=== PATIENT | male | born 1960 | race Caucasian/White ===

== ENCOUNTER 2017-05-29 12:36 | Inpatient (IN) | payer OTHER ==
--- NOTE | 2017-05-29 13:08 | CPEKG ---
Heart Rate: 94 RR Interval: 638 P-R Interval: 152 QRSD Interval: 92 QT Interval: 368 QTC Interval: 461 P [place]: 52 QRS [place]: 66 T Wave [place]: 1 EKG Severity - NORMAL ECG - EKG Impression: SINUS RHYTHM Electronically Signed By: Diane Sampson 29-May-2017 20:47:02
--- NOTE | 2017-05-29 13:23 | EDPHY ---
H & P Time Seen by Provider: 05/29/17 13:11 HPI/ROS: CHIEF COMPLAINT: Abdominal pain HISTORY OF PRESENT ILLNESS: This patient is a 56 year old male complaining of abdominal pain onset yesterday afternoon. He has had intermittent epigastric pains over the last few months. These pains occur often after eating, but he has not noted a correlation with any particular kind of foods. He has not followed up with his primary care provider regarding these symptoms. Yesterday, he had an episode lasting about one hour with pain at about 5/10 severity. His pain is localized to his epigastric area and radiates to his back. It does not radiate to his groin area. Today, had an upset stomach feeling upon waking around 8am and went to work out as usual, but his pain increased and he was unable to exercise. He returned home, and his pain increased to 9/10 severity and he developed nausea. This severe pain lasted around 30 minutes, at which point he vomited and felt his pain was relieved. He has had kidney stones in the past, but does not feel his current symptoms are similar. He has history of CABG, but this does not feel like his prior heart symptoms. No history of abdominal surgery. No fever, chest pain, shortness of breath, or other associated symptoms. REVIEW OF SYSTEMS: A 10 point review of systems was performed and is negative with the exception of the elements mentioned in the history of present illness. Past Medical/Surgical History: Triple bypass 12/2015, 5 stents, Hyperlipidemia, Knee surgery Social History: Nonsmoker. Alcohol use in moderation. Lives in [place]. Smoking Status: Former smoker Physical Exam: General Appearance: Alert, no distress Eyes: Pupils equal and round, no conjunctival pallor or injection ENT, Mouth: Mucous membranes moist Neck: Normal inspection Respiratory: Lungs are clear to auscultation Cardiovascular: Regular rate and rhythm Gastrointestinal: Midepigastric and right upper quadrant tenderness. Abdomen is soft. Neurological: A&O, nonfocal, normal gait Skin: Warm and dry, no rash Extremities: Nontender, no pedal edema Psychiatric: Mood and affect normal Constitutional: Initial Vital Signs Temperature (C) 36.5 C 05/29/17 12:52 Heart Rate 93 05/29/17 12:52 Respiratory Rate 16 05/29/17 12:52 Blood Pressure 128/97 H 05/29/17 12:52 O2 Sat (%) 94 05/29/17 12:52 O2 Delivery Mode Room Air Allergies/Adverse Reactions: codeine Allergy (Verified 05/29/17 12:50) Home Medications: Medication Instructions Recorded Ascorbic Acid [Vitamin C 500 mg 500 mg PO DAILY@1200 09/21/13 (*)] Multivitamins [Multivitamin (*)] 1 each PO DAILY@1200 09/21/13 Rosuvastatin Calcium [Crestor] 10 mg PO DAILY@1300 09/21/13 Herbals/Supplements -Info Only 1 ea PO DAILY 12/20/15 Zolpidem Tartrate [Ambien 10 mg] 10 mg PO HS PRN 12/30/15 Aspirin EC [Aspirin EC 81 mg (*)] 81 mg PO DAILY 05/29/17 [place]-3 Fatty Acids [Fish Oil 1000 1,000 mg PO DAILY 05/29/17 mg (*)] Ramipril [Altace 5mg (*)] 5 mg PO DAILY 05/29/17 Medical Decision Making - Diagnostics Imaging Results: Abdomen Ultrasound 05/29/17 13:26 Impression: 1. Cholelithiasis with multiple shadowing gallstones and gallbladder wall thickening suggesting cholecystitis. 2. No biliary ductal dilation or pericholecystic fluid. 3. Hepatomegaly and hepatic steatosis. Findings discussed with Emergency Department physician, Diane Sampson, at 1442 hours 05/29/2017. Final report concurs with initial preliminary interpretation. Imaging: Discussed imaging studies w/ order caller Radiologist ED Course/Re-evaluation: 56 year old male presents with epigastric and right upper quadrant abdominal pain worsening since yesterday. Plan for labs including CBC, BMP, liver, lipase. Plan for abdominal US. 14:[address] Gonzalez, radiologist. US shows cholecystitis. [place]ase [place] [id number]. 14:[address] Roth, general surgeon. He will consult. 14:58 Patient feels his pain is escalating. Plan to administer 1mg IV Dilaudid, 1g IV ertapenem, 4mg IV Zofran for symptom relief. 15:[address] Mendoza, audio visual coordinator. He will consult. 15:06 Spoke with hospitalist service. Dr. Bahena accepts admission. Differential Diagnosis: includes though not limited to appendicitis, choledocolithiasis, cholangitis, PUD, acute hepatitis - Data Points Laboratory Results: Laboratory Results 05/29/17 13:10 05/29/17 13:10 Medications Given: Ascorbic Acid (Vitamin C) 500 mg PO DAILY@1200 [facility] Stop: 11/26/17 11:59 Last Admin: 05/31/17 13:37 Dose: Not Given Aspirin Buffered (Aspirin Ec) 81 mg PO DAILY [facility] Stop: 11/26/17 08:59 Last Admin: 05/31/17 09:10 Dose: Not Given Hydromorphone HCl (Dilaudid) 0.4 - 1 mg IVP Q2HRS PRN PRN Reason: Pain, Severe Unable to Take PO Stop: 06/09/17 15:01 Last Admin: 05/31/17 16:48 Dose: 1 mg Ertapenem 1 gm/ Sodium (Chloride) 100 mls @ 200 mls/hr IV DAILY MALAIKA PRN Reason: Protocol Stop: 06/29/17 08:59 Last Admin: 05/31/17 09:08 Dose: 100 mls Sodium Chloride (Ns) 1,000 mls @ 125 mls/hr IV CONT [facility] Stop: 11/25/17 15:14 Last Admin: 05/31/17 10:16 Dose: 1,000 mls Multivitamins (Tab-A-Norma) 1 each PO DAILY@1200 [facility] Stop: 11/26/17 11:59 Last Admin: 05/31/17 13:37 Dose: Not Given Izqgm-2-Eckk Ethyl Esters (Fish Oil) 1,000 mg PO DAILY [facility] Stop: 11/26/17 08:59 Last Admin: 05/31/17 09:15 Dose: Not Given Ondansetron HCl (Zofran) 4 mg IVP Q4HRS PRN PRN Reason: Nausea/Vomiting, Can't Take PO Stop: 11/25/17 15:10 Last Admin: 05/30/17 22:31 Dose: 4 mg Ramipril (Altace) 5 mg PO DAILY [facility] Stop: 11/26/17 08:59 Last Admin: 05/31/17 09:15 Dose: 5 mg Zolpidem Tartrate (Ambien) 10 mg PO HS PRN PRN Reason: Sleep/Insomnia Stop: 11/25/17 18:11 Last Admin: 05/30/17 22:32 Dose: 10 mg Discontinued Medications Enoxaparin Sodium (Lovenox) 40 mg SC DAILY [facility] Stop: 11/26/17 08:59 Last Admin: 05/31/17 09:10 Dose: Not Given Hydromorphone HCl (Dilaudid) 1 mg IVP Q2HRS PRN PRN Reason: Pain, Severe Unable to Take PO Stop: 05/29/17 18:01 Last Admin: 05/29/17 14:58 Dose: 1 mg Hydromorphone HCl (Dilaudid) 0.4 mg IVP Q2HRS PRN PRN Reason: Pain, Severe Unable to Take PO Stop: 06/08/17 18:36 Last Admin: 05/29/17 18:45 Dose: 0.4 mg Ertapenem 1 gm/ Sodium (Chloride) 100 mls @ 200 mls/hr IV EDNOW ONE PRN Reason: Protocol Stop: 05/29/17 15:24 Last Admin: 05/29/17 15:47 Dose: 100 mls Morphine Sulfate (Morphine) 2 - 4 mg IVP Q4HRS PRN PRN Reason: Pain, Severe Unable to Take PO Stop: 06/08/17 20:20 Last Admin: 05/30/17 11:16 Dose: 2 mg Ondansetron HCl (Zofran) 4 mg IVP EDNOW ONE Stop: 05/29/17 14:53 Last Admin: 05/29/17 14:57 Dose: 4 mg Departure - Departure [facility] Clinical Impression: Acute gallstone pancreatitis Condition: Fair Report Scribed for: Diane Sampson Report Scribed by: Agustina Fregsoo Date of Report: 05/29/17 Time of Report: 13:24 Physician Review and Approval Statement: 05/29/17 13:24 Portions of this note were transcribed by a nurses medical assistants phlebotomists. I personally performed a history, physical exam, medical decision making, and confirmed accuracy of information the transcribed note.
[2017-05-29 13:29] LABS: % IMMATURE GRANULYOCYTES 0.4 % (0.0-1.1); ABSOLUTE IMMATURE GRANULOCYTES 0.07 10^3/uL (0.00-0.10); ADD DIFF? NO; ADD MORPH? NO; ADD SCAN? NO; ATYPICAL LYMPHOCYTE FLAG 0 (0-99); FRAGMENT RBC FLAG 0 (0-99); HEMATOCRIT 49.9 % (40.0-51.0); HEMOGLOBIN 17.4 g/dL (13.7-17.5); LEFT SHIFT FLG 0 (0-99); LIPEMIA HEMOLYSIS FLAG 90 (0-99); MEAN CELL HEMOGLOBIN 31.1 pg (27.9-34.1); MEAN CELL HEMOGLOBIN CONCENTR. 34.9 g/dL (32.4-36.7); MEAN CELL VOLUME 89.3 fL (81.5-99.8); MEAN PLATELET VOLUME 10.5 fL (8.7-11.7); PLATELET CLUMPS FLAG 0 (0-99); PLATELET COUNT 210 10^3/uL (150-400); RED BLOOD CELL COUNT 5.59 10^6/uL (4.40-6.38); RED CELL DISTRIBUTION WIDTH 12.3 % (11.5-15.2)
[2017-05-29 13:34] LABS: ALANINE AMINOTRANSFERASE 104 IU/L (21-72); ALKALINE PHOSPHATASE 77 IU/L (38-126); ANION GAP 16 mEq/L (8-16); ASPARTATE AMINOTRANSFERASE 171 IU/L (17-59); BILIRUBIN,TOTAL 4.5 mg/dL (0.1-1.4); BILIRUBIN-CONJUGATED 2.3 mg/dL (0.0-0.5); BILIRUBIN-UNCONJUGATED 2.2 mg/dL (0.0-1.1); CALCIUM 10.7 mg/dL (8.5-10.4); CARBON DIOXIDE 23 mEq/l (22-31); CHLORIDE 102 mEq/L (97-110); GLOMERULAR FILTRATION RATE > 60; GLUCOSE 117 mg/dL (70-100); POTASSIUM 3.9 mEq/L (3.5-5.2); SODIUM 141 mEq/L (134-144)
[2017-05-29] MEDS ORDERED: ONDANSETRON 4 MG/2 ML VIAL IVP ONE (14:52)
[2017-05-29] MEDS ORDERED: HYDROmorphONE/DILAUDID 1 MG/ML SYR IVP PRN ×2 (14:52→18:37)
[2017-05-29] MEDS ORDERED: ERTAPENEM 1 GM in NS 100 ML IV ONE (14:55)
[2017-05-29] MEDS ORDERED: ONDANSETRON DISINTEGRATING 4 MG TAB PO PRN (15:11)
[2017-05-29] MEDS ORDERED: ACETAMINOPHEN 325 MG TAB PO PRN (15:11)
[2017-05-29] MEDS: NS 1,000 ML IV SCH (16:29)
[2017-05-29] MEDS ORDERED: NON-FORMULARY NEW DRUG (Zolpidem Tartrate [Ambien 10 Mg] 10 MG) PO PRN (17:54)
--- NOTE | 2017-05-29 18:00 | PDGENHP ---
History and Physical - Chief Complaint Abdominal pain - History of Present Illness 56-year-old male presents to the emergency department today with a 3 to four- day history of worsening epigastric pain. Patient states that he has had intermittent epigastric pain for the past few months but has not sought treatment. He states that the pain has gotten worse over the last few days to the point where it was excruciating which brought him to present to the emergency department today. He is unclear what makes the pain worse, does state that he used usually worse with eating and that he has thought this is biliary in nature given the fact that he has had family members have cholecystectomies in the past but has not sought treatment. He describes his pain is epigastric, sharp, 8/10 at worse intensity, with radiation to the back and right upper quadrant. It is better with not eating and IV narcotics. He denies having any nausea vomiting fever or chills in his main complaint is the pain. History Information - Allergies/Home Medication List Allergies/Adverse Reactions: codeine Allergy (Verified 05/29/17 12:50) Home Medications: Ascorbic Acid [Vitamin C 500 mg (*)] 500 mg PO DAILY@1200 09/21/13 [Last Taken 05/29/17] Multivitamins [Multivitamin (*)] 1 each PO DAILY@1200 09/21/13 [Last Taken 05/29] Rosuvastatin Calcium [Crestor] 10 mg PO DAILY@1300 09/21/13 [Last Taken 05/29/17 ] Herbals/Supplements -Info Only 1 ea PO DAILY 12/20/15 [Last Taken 12/16/15] Zolpidem Tartrate [Ambien 10 mg] 10 mg PO HS PRN 12/30/15 [Last Taken 05/29/17] Aspirin EC [Aspirin EC 81 mg (*)] 81 mg PO DAILY 05/29/17 [Last Taken 05/29/17] [place]-3 Fatty Acids [Fish Oil 1000 mg (*)] 1,000 mg PO DAILY 05/29/17 [Last Taken 05/29/17] Ramipril [Altace 5mg (*)] 5 mg PO DAILY 05/29/17 [Last Taken 05/29/17] I have personally reviewed and updated: family history, medical history, social history, surgical history - Past Medical History coronary artery disease - Surgical History Additional surgical history: Two vessel CABG, no abdominal surgeries - Social History Smoking Status: Former smoker Alcohol Use: Occasionally Drug Use: None Review of Systems ROS: 10pt was reviewed & negative except for what was stated in HPI & below Physical Exam Temp Pulse Resp BP Pulse Ox 36.6 C 83 16 151/87 H 97 05/29/17 16:24 05/29/17 16:24 05/29/17 16:24 05/29/17 16:24 05/29/17 16:24 O2 (L/minute) 2 Constitutional: no apparent distress, appears nourished, not in pain Eyes: PERRL, anicteric sclera, EOMI, No icteric sclera Ears, Nose, Mouth, Throat: moist mucous membranes, hearing normal, ears appear normal, no oral mucosal ulcers Cardiovascular: regular rate and rhythym, no murmur, rub, or gallop, No edema Respiratory: no respiratory distress, no rales or rhonchi, clear to auscultation Gastrointestinal: other (Soft, nondistended, tender to palpation in the epigastrium without rebound tenderness or guarding) Skin: warm, normal color, no rashes or abrasions, no fluctuance, no induration, No mottled Musculoskeletal: full muscle strength, no muscle tenderness, normal joint ROM, no joint effusions Neurologic: AAOx3, sensation intact bilaterally Psychiatric: interacting appropriately, not anxious, not encephalopathic, thought process linear Lymph, Heme, Immunologic: no cervical LAD, no supraclavicular LAD Lab Data & Imaging Review 05/29/17 13:10 05/29/17 13:10 WBC 16.12 10^3/uL (3.80-9.50) H 05/29/17 13:10 RBC 5.59 10^6/uL (4.40-6.38) 05/29/17 13:10 Hgb 17.4 g/dL (13.7-17.5) 05/29/17 13:10 Hct 49.9 % (40.0-51.0) 05/29/17 13:10 MCV 89.3 fL (81.5-99.8) 05/29/17 13:10 MCH 31.1 pg (27.9-34.1) 05/29/17 13:10 MCHC 34.9 g/dL (32.4-36.7) 05/29/17 13:10 RDW 12.3 % (11.5-15.2) 05/29/17 13:10 Plt Count 210 10^3/uL (150-400) 05/29/17 13:10 MPV 10.5 fL (8.7-11.7) 05/29/17 13:10 Neut % (Auto) 89.2 % (39.3-74.2) H 05/29/17 13:10 Lymph % (Auto) 5.3 % (15.0-45.0) L 05/29/17 13:10 [place] % (Auto) 4.8 % (4.5-13.0) 05/29/17 13:10 Eos % (Auto) 0.1 % (0.6-7.6) L 05/29/17 13:10 Baso % (Auto) 0.2 % (0.3-1.7) L 05/29/17 13:10 Nucleat RBC Rel Count 0.0 % (0.0-0.2) 05/29/17 13:10 Absolute Neuts (auto) 14.37 10^3/uL (1.70-6.50) H 05/29/17 13:10 Absolute Lymphs (auto) 0.86 10^3/uL (1.00-3.00) L 05/29/17 13:10 Absolute Monos (auto) 0.77 10^3/uL (0.30-0.80) 05/29/17 13:10 Absolute Eos (auto) 0.01 10^3/uL (0.03-0.40) L 05/29/17 13:10 Absolute Basos (auto) 0.04 10^3/uL (0.02-0.10) 05/29/17 13:10 Absolute Nucleated RBC 0.00 10^3/uL (0-0.01) 05/29/17 13:10 Immature Gran % 0.4 % (0.0-1.1) 05/29/17 13:10 Immature Gran # 0.07 10^3/uL (0.00-0.10) 05/29/17 13:10 Sodium 141 mEq/L (134-144) 05/29/17 13:10 Potassium 3.9 mEq/L (3.5-5.2) 05/29/17 13:10 Chloride 102 mEq/L (97-110) 05/29/17 13:10 Carbon Dioxide 23 mEq/l (22-31) 05/29/17 13:10 Anion Gap 16 mEq/L (8-16) 05/29/17 13:10 BUN 17 mg/dL (7-23) 05/29/17 13:10 Creatinine 1.0 mg/dL (0.7-1.3) 05/29/17 13:10 Estimated GFR > 60 05/29/17 13:10 Glucose 117 mg/dL (70-100) H 05/29/17 13:10 Calcium 10.7 mg/dL (8.5-10.4) H 05/29/17 13:10 Phosphorus 3.1 mg/dL (2.5-4.5) 05/29/17 13:10 Total Bilirubin 4.5 mg/dL (0.1-1.4) H 05/29/17 13:10 Conjugated Bilirubin 2.3 mg/dL (0.0-0.5) H 05/29/17 13:10 Unconjugated Bilirubin 2.2 mg/dL (0.0-1.1) H 05/29/17 13:10 AST 171 IU/L (17-59) H 05/29/17 13:10 ALT 104 IU/L (21-72) H 05/29/17 13:10 Alkaline Phosphatase 77 IU/L (38-126) 05/29/17 13:10 Total Protein 8.0 g/dL (6.3-8.2) 05/29/17 13:10 Albumin 5.0 g/dL (3.5-5.0) 05/29/17 13:10 Lipase > 42348 IU/L (23-300) H 05/29/17 13:10 Visualized and Interpreted imaging results: Yes Interpretation: Ultrasound shows gallbladder wall thickening, cholelithiasis, normal duct architecture Assessment & Plan Assessment: Acute gallstone pancreatitis (Acute) Plan: 56-year-old male with acute gallstone pancreatitis, likely cholecystitis. I told the patient that with his lipase of greater than 20,000 which is are labs upper limit of measurements he has a fairly robust pancreatitis. In addition, his bilirubin is also for and I have high suspicion that he likely has choledocholithiasis although this is not apparent on his ultrasound. I told him that he needs to have this likely choledocholithiasis and pancreatitis addressed initially and that he will require cholecystectomy this admission. Agree with IV hydration, antibiotics and GI consultation for likely ERCP for stone clearance. Will follow up with cholecystectomy once pancreatitis resolves , hopefully within the next 24-48 hours. Discussed the patient's surgery with him including the risks benefits and alternatives and he wishes to proceed when appropriate
--- NOTE | 2017-05-29 18:29 | GHP ---
[f rep st] HISTORY AND PHYSICAL DATE OF ADMISSION: 05/29/2017 CHIEF COMPLAINT: Abdominal pain. HISTORY OF PRESENT ILLNESS: This is a 56-year-old male with a history of coronary artery disease st atus post bypass in December of 2015 who presents with sudden onset of epigastric pain the morning of p resentation. Patient reports being in his normal state of health the day previously with normal ora l intake and fluid intake. No abdominal discomfort, nausea, vomiting, or changes in his bowel habit s. Patient had a normal stool the evening prior to presentation. When he woke in the morning he dang d an upset stomach feeling with pain in his epigastric area. Thought it was simply some acid reflux or dyspepsia. Took a couple [id number] medications and went to the gym in hopes that it woul d resolve. Pain progressed to the point that he vomited and became diaphoretic therefore called for emergency assistance to have someone bring him to the emergency room. In the ED pain persists at a 10/10 radiating to his back from his epigastrium, additionally having some pain in the right upper quadrant. Patient reports several episodes similar to this in the past, in the past year, none as s evere as this leading to nausea and vomiting. Typically spontaneously resolving on their own. Sofya ent denies any subjective fevers or chills. Denies any chest pain. Denies shortness of breath. De nies palpitations, lightheadedness, vision changes. Denies any stools today. Denies dysuria, hemat uria, lower extremity edema. Denies any recent rashes or new medications. PAST MEDICAL HISTORY: 1. Coronary artery disease status post CABG in 2016. 2. Hypertension. 3. Hyperlipidemia. SOCIAL HISTORY: The patient does not smoke. Drinks alcohol occasionally. Denies illicit drugs or marijuana. FAMILY HISTORY: Positive for coronary artery disease, as well as gallbladder disease. ADVANCED DIRECTIVES: Patient is full COR, full tube. REVIEW OF SYSTEMS: A 10-point review of systems is negative with the exception of that reported in the HPI. PHYSICAL EXAMINATION: VITAL SIGNS: Blood pressure 151/87, heart rate 83, respiratory rate 16, 97% on 2 L, 36.6. GENERAL: This is a healthy-appearing middle-aged male in no acute distress. HEENT: Notable for moist mucous membranes. Eye exam is negative for any icterus. CARDIAC: Patient is reg ular rate and rhythm. PULMONARY: Clear to auscultation bilaterally. GASTROINTESTINAL: Positive b owel sounds. The abdomen is tender in the epigastric area and right upper quadrant. Patient has no rebound or guarding. MUSCULOSKELETAL: Negative for any lower extremity edema. SKIN: Negative fo r any rashes or jaundice. NEUROLOGIC: Patient is alert and oriented x3. PSYCHIATRIC: He is pleas ant and cooperative on interview and examination. DATA: White count is 16.12, normal range is 7 to 9; hematocrit is 49.9. Sodium 141, creatinine 1.0 , total bilirubin is 4.5, AST 171, ALT 104, lipase is greater than 20,000, alkaline phosphatase is 7 7. EKG, which I personally reviewed and interpreted shows sinus rhythm, normal axis, normal interva ls, a biphasic P in V1, otherwise no acute ST-T changes. Ultrasound of the abdomen, which I reviewe d shows cholelithiasis with multiple stones and gallbladder wall thickening suggestive of cholecysti tis. No biliary ductal dilatation is noted by Radiology. ASSESSMENT AND PLAN: This is a 56-year-old male presenting with acute abdominal pain. 1. Acute gallstone pancreatitis. Patient has had multiple episodes in the past. This being the wo rst. New liver function tests abnormalities, gallbladder wall thickening, and the leukocytosis. We will empirically treat for pancreatitis keeping the patient n.p.o. with IV fluids and IV pain medic ations. Both General Surgery and Gastroenterology being consulted from the emergency department. Nikita villagomez will leave recommendations related to potential ERCP and/or cholecystectomy. 2. Presumed acute cholecystitis. Patient again has a leukocytosis and gall bladder wall abnormalit ies. Received Invanz in the emergency department, which we will continue at this time. 3. Coronary artery disease. The patient does not have chest pain complaints and will be continued on his normal cardiac medications without alteration. 4. Hypertension. Patient's blood pressures are adequately controlled. We will continue his ramipr il. 5. Hyperlipidemia. We will hold the patient's statin on presentation in the setting of acute liver function test abnormalities. 6. Prophylaxis with Lovenox. 7. Diet. He will be n.p.o. with IV fluids. 8. Disposition. I expect greater than 2 midnights as the patient is presenting with acute gallston e pancreatitis and concern for possible cholecystitis. Requires IV antibiotics, close monitoring, a nd consultation by Surgery and Gastroenterology. Discussed the case with the emergency room ubaldo madison. Patient will be triaged to the medical-surgical floor for care. /[id number]/MODL
[2017-05-29] MEDS: ZOLPIDEM TARTRATE 5 MG TAB PO PRN (22:48)
[2017-05-30] MEDS: NS 1,000 ML IV SCH ×3 (00:42→19:22)
[2017-05-30 05:12] LABS: % IMMATURE GRANULYOCYTES 0.2 % (0.0-1.1); ABSOLUTE IMMATURE GRANULOCYTES 0.01 10^3/uL (0.00-0.10); ADD DIFF? NO; ADD MORPH? NO; ADD SCAN? NO; ATYPICAL LYMPHOCYTE FLAG 0 (0-99); FRAGMENT RBC FLAG 0 (0-99); HEMATOCRIT 42.4 % (40.0-51.0); HEMOGLOBIN 14.4 g/dL (13.7-17.5); LEFT SHIFT FLG 0 (0-99); LIPEMIA HEMOLYSIS FLAG 90 (0-99); MEAN CELL HEMOGLOBIN 31.1 pg (27.9-34.1); MEAN CELL VOLUME 91.6 fL (81.5-99.8); MEAN PLATELET VOLUME 10.7 fL (8.7-11.7); PLATELET CLUMPS FLAG 0 (0-99); PLATELET COUNT 144 10^3/uL (150-400); RED BLOOD CELL COUNT 4.63 10^6/uL (4.40-6.38); RED CELL DISTRIBUTION WIDTH 12.5 % (11.5-15.2)
[2017-05-30 06:27] LABS: ALBUMIN 3.8 g/dL (3.5-5.0); CHLORIDE 107 mEq/L (97-110); GLOMERULAR FILTRATION RATE > 60; POTASSIUM 4.1 mEq/L (3.5-5.2); TOTAL PROTEIN 5.9 g/dL (6.3-8.2)
[2017-05-30 06:36] LABS: ALANINE AMINOTRANSFERASE 187 IU/L (21-72); ALKALINE PHOSPHATASE 67 IU/L (38-126); ANION GAP 10 mEq/L (8-16); ASPARTATE AMINOTRANSFERASE 139 IU/L (17-59); CALCIUM 8.9 mg/dL (8.5-10.4); CARBON DIOXIDE 24 mEq/l (22-31); CREATININE 0.9 mg/dL (0.7-1.3); GLUCOSE 100 mg/dL (70-100); SODIUM 141 mEq/L (134-144)
[2017-05-30] MEDS ORDERED: Herbals/Supplements -Info Only PO SCH (09:00)
[2017-05-30] MEDS: ERTAPENEM 1 GM in NS 100 ML IV SCH (09:59)
[2017-05-30] MEDS: RAMIPRIL 5 MG CAP PO SCH (11:26)
--- NOTE | 2017-05-30 11:26 | GCON ---
[f rep st] CONSULTATION DATE OF CONSULTATION: 05/29/2017 REFERRING PHYSICIAN: Christiane Bahena MD REASON FOR CONSULTATION: Acute pancreatitis. CHIEF COMPLAINT: Abdominal pain. HISTORY OF PRESENT ILLNESS: The patient is a 56-year-old male with a history of coronary artery disease, status post CABG, hypertension, who presents to [facility] with complaints of severe epigastric abdominal pain. Since August of last year, patient has had intermittent symptoms of abdominal pain that often lasted 1-2 hours. The pain occurred on a monthly basis and was exacerbated by oral intake with no alleviating factors but time. The patient states that he developed significant pain this morning when he woke up, which got progressively worse over the day. He tried to work out, which he thinks worsened the pain. The pain is sharp and mainly in the upper quadrants with radiation to the back. He has significant nausea, as well as vomiting. On evaluation in the ER, he was noted to have a lipase greater than 20,000. He also had an abdominal ultrasound which revealed cholelithiasis but no ductal dilation. On blood work, he was noted to have elevated liver function tests with an AST of 171 and ALT 104 with a normal alkaline phosphatase of 77. I am being asked by Dr. Bahena to evaluate the patient in consultation regarding his acute pancreatitis. PAST MEDICAL HISTORY: 1. Coronary artery disease. 2. Hypertension. 3. Hyperlipidemia. PAST SURGICAL HISTORY: CABG in 2016. MEDICATIONS: At home, ascorbic acid, Crestor, zolpidem, aspirin, ramipril. ALLERGIES: Codeine. SOCIAL HISTORY: Former smoker. Social alcohol. FAMILY HISTORY: Positive coronary artery disease. Positive gallbladder disease. REVIEW OF SYSTEMS: A 12-point comprehensive review of systems was asked. Pertinent positives and negatives per HPI. PHYSICAL EXAMINATION: VITAL SIGNS: Blood pressure 148/89, heart rate 76, respirations 18, temperature 36.6. GENERAL: Awake, alert, and oriented x3, in no distress. HEENT: Anicteric sclerae. Moist mucosa. NECK: No JVD. CARDIOVASCULAR: Regular rate and rhythm. Positive S1, S2. No murmurs, rubs, or gallops appreciated. LUNGS: Clear to auscultation bilaterally. No wheezes, rales , or rhonchi. ABDOMEN: Soft. Abdomen distended. Positive bowel sounds but diminished. . No guarding. No rebound. EXTREMITIES: No clubbing, cyanosis or edema. NEUROLOGIC: Cranial nerves 2 through 12 grossly intact. MUSCULOSKELETAL: No obvious joint deformities. PSYCHIATRIC: Normal affect. LABORATORY DATA: Blood work: Sodium 141, potassium 3.8, chloride 102, bicarb 23 , BUN 17, creatinine 1.0. Total bilirubin 4.5, AST 171, ALT 104, alkaline phosphatase 77, lipase greater than 20,000. WBC 16.12, hemoglobin 17.4, hematocrit 49.9. ASSESSMENT AND PLAN: 1. Acute pancreatitis- biliary. Ultrasound did show cholelithiasis. At this time, I recommend to increase his IV fluids, keep n.p.o., as well as IV pain medications. The ultrasound showed no ductal dilation and he has normal alkaline phosphatase, unsure whether he has choledocholithiasis. Would recommend to monitor LFTs. If there is rise in alkaline phosphatase, may consider ERCP versus MRCP. The risks, benefits, and alternatives were discussed with the patient. He will need cholecystectomy once he recovers. 2. Coronary artery disease. 3. Hypertension. Thank you very much for this consultation. /[id number]/MODL MTDD
[2017-05-30] MEDS: ASPIRIN EC 81 MG TAB PO SCH (13:26)
[2017-05-30] MEDS: ENOXAPARIN 40 MG/0.4 ML SYR SC SCH (13:27)
[2017-05-30] MEDS: ASCORBIC ACID 500 MG TAB PO SCH (13:27)
[2017-05-30] MEDS: OMEGA-3 FATTY ACIDS 1,000 MG CAP PO SCH (13:27)
[2017-05-30] MEDS: MULTIVITAMINS 1 EACH TAB PO SCH (13:27)
--- NOTE | 2017-05-30 14:40 | SOAPPROG ---
SOTING Progress Note Assessment/Plan: Assessment: Plan: 05/30/17 14:37 A/P 1. Acute pancreatitis- biliary. Alk phos normal with no dilation of CBD on imaging. Low suspicion for choledocholithiasis. Will continue to monitor LFTs. Slowly improving. Recommend pancreatic rest- npo, iv fluids, and pain meds. Consider IOC at time of CCY? 05/30/17 14:41 Subjective: cc: abdominal pain Still complaining of pain. Passing minimal gas. Objective: Vital Signs Temp Pulse Resp BP Pulse Ox 36.9 C 69 16 149/85 H 94 05/30/17 11:07 05/30/17 11:07 05/30/17 11:07 05/30/17 11:26 05/30/17 11:07 Laboratory Results 05/30/17 04:51 05/30/17 04:51 05/29/17 05/30/17 05/31/17 05:59 05:59 05:59 Intake Total 1000 Output Total 200 Balance 800 Physical Exam - Physical Exam General Appearance: alert, no apparent distress EENT: No scleral icterus (R), No scleral icterus (L) Respiratory: lungs clear, normal breath sounds, No rales, No rhonchi Cardiac/Chest: regular rate, rhythm, systolic murmur Abdomen: distended, No normal bowel sounds (diminished), No non-tender (tender in upper quad), No guarding, No mass, No hepatomegaly, No splenomegaly Skin: normal color, warm/dry Neuro/Psych: normal mood/affect, oriented x 3, No 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
--- NOTE | 2017-05-30 15:14 | HOSPPROG ---
Hospitalist Progress Note Assessment/Plan: 56 yo M with PMH of CAD presenting with acute on chronic mid epigastric pain found to be 2/2 acute gallstone pancreatitis # acute gallstone pancreatitis: with several months of preceding intermittent abdominal pain particularly worsened by eating fatty foods. Lipase >20K, will need cholecystitis during this hospitalization but for now plan is for NPO, IVF , abx as next, IV pain medication. Pain has not been helped much at all by morphine, he notes that the medication given in the ER did lead to significant improvement in his sxs and will resume dilaudid for now. # acute cholecystitis: in setting of above with GB wall thickening c/w cholecystitis as well as leukocytosis that improved overnight. Did have elevated bili and transaminases with essentially normal alk phos, so ? self resolved choledocholithiasis. GI consulted and does not feel ERCP indicated, will trend LFTs, continue ertapenem. # leukocytosis: in setting of above and now resolved # h/o CAD: without e/o chest pain or acute isses # htn: continue ramipril # hld: holding statin # dispo: IP status, will likely need > 48 hours stay for eval/mgmt of above Patient new to my care. Old records reviewed and summarized as above. Subjective: no significant events overnight, he notes that today his pain remains poorly controlled and that when he gets morphine it only goes down by about 1 point Objective: Vital Signs Temp Pulse Resp BP Pulse Ox 36.9 C 69 16 149/85 H 94 05/30/17 11:07 05/30/17 11:07 05/30/17 11:07 05/30/17 11:26 05/30/17 11:07 Laboratory Results 05/30/17 04:51 05/30/17 04:51 05/29/17 05/30/17 05/31/17 05:59 05:59 05:59 Intake Total 1000 Output Total 200 Balance 800 awake alert nad anicteric op clear rrr no mrg cta b soft nt nd no cce warm dry well perfused oriented appropriate ICD10 Worksheet Patient Problems: Problems Problem Status Onset Chest pain Acute CAD (coronary artery disease), [place] coronary artery Acute S/P CABG x 2 Acute Presence of bare metal stent in right coronary artery Chronic Presence of drug coated stent in LAD coronary artery Chronic Postpericardiotomy pericarditis Acute Acute gallstone pancreatitis Acute
[2017-05-30] MEDS ORDERED: PROMETHAZINE HCL 25 MG/ML INJ IVP PRN (15:20)
[2017-05-30] MEDS: ONDANSETRON 4 MG/2 ML VIAL IVP PRN ×2 (15:31→22:31)
[2017-05-30] MEDS: HYDROmorphONE/DILAUDID 1 MG/ML SYR IVP PRN ×2 (15:31→22:31)
[2017-05-30] MEDS: ZOLPIDEM TARTRATE 5 MG TAB PO PRN (22:32)
[2017-05-31] MEDS: NS 1,000 ML IV SCH ×3 (03:07→18:07)
[2017-05-31 05:17] LABS: % IMMATURE GRANULYOCYTES 0.3 % (0.0-1.1); ABSOLUTE IMMATURE GRANULOCYTES 0.03 10^3/uL (0.00-0.10); ADD DIFF? NO; ADD MORPH? NO; ADD SCAN? NO; ATYPICAL LYMPHOCYTE FLAG 0 (0-99); FRAGMENT RBC FLAG 0 (0-99); HEMOGLOBIN 13.3 g/dL (13.7-17.5); LEFT SHIFT FLG 0 (0-99); LIPEMIA HEMOLYSIS FLAG 90 (0-99); MEAN CELL HEMOGLOBIN 30.9 pg (27.9-34.1); MEAN CELL HEMOGLOBIN CONCENTR. 34.1 g/dL (32.4-36.7); MEAN CELL VOLUME 90.5 fL (81.5-99.8); MEAN PLATELET VOLUME 10.4 fL (8.7-11.7); PLATELET CLUMPS FLAG 20 (0-99); PLATELET COUNT 137 10^3/uL (150-400); RED BLOOD CELL COUNT 4.31 10^6/uL (4.40-6.38); RED CELL DISTRIBUTION WIDTH 12.4 % (11.5-15.2)
[2017-05-31 05:30] LABS: ALANINE AMINOTRANSFERASE 105 IU/L (21-72); ALBUMIN 3.6 g/dL (3.5-5.0); ALKALINE PHOSPHATASE 53 IU/L (38-126); AMYLASE 140 IU/L (30-110); ANION GAP 12 mEq/L (8-16); ASPARTATE AMINOTRANSFERASE 52 IU/L (17-59); BILIRUBIN,TOTAL 1.7 mg/dL (0.1-1.4); CALCIUM 8.7 mg/dL (8.5-10.4); CARBON DIOXIDE 23 mEq/l (22-31); CHLORIDE 104 mEq/L (97-110); CREATININE 0.9 mg/dL (0.7-1.3); GLOMERULAR FILTRATION RATE > 60; GLUCOSE 85 mg/dL (70-100); MAGNESIUM 1.7 mg/dL (1.6-2.3); POTASSIUM 3.7 mEq/L (3.5-5.2); SODIUM 139 mEq/L (134-144); TOTAL PROTEIN 5.7 g/dL (6.3-8.2)
[2017-05-31] MEDS: ERTAPENEM 1 GM in NS 100 ML IV SCH (09:08)
[2017-05-31] MEDS: ASPIRIN EC 81 MG TAB PO SCH (09:10)
[2017-05-31] MEDS: ENOXAPARIN 40 MG/0.4 ML SYR SC SCH (09:10)
[2017-05-31] MEDS: OMEGA-3 FATTY ACIDS 1,000 MG CAP PO SCH (09:15)
[2017-05-31] MEDS: RAMIPRIL 5 MG CAP PO SCH (09:15)
--- NOTE | 2017-05-31 10:32 | HOSPPROG ---
Hospitalist Progress Note Assessment/Plan: 56 yo M with PMH of CAD presenting with acute on chronic mid epigastric pain found to be 2/2 acute gallstone pancreatitis acute gallstone pancreatitis: with several months of preceding intermittent abdominal pain particularly worsened by eating fatty foods. improving resolving lft's and sx argue against choledocholithiasis, as does absence of dilated ducts on initial imaging discussing timing of ccy w dr guadalupe hold lovenox npo p mn leukocytosis: in setting of above and now resolved h/o CAD: without e/o chest pain or acute issues htn: continue ramipril hld: holding statin dispo: IP status, will likely need > 48 hours stay for eval/mgmt of above Subjective: feels much better. tolerated broth yesterday. lft's improving. case d/w dr guadalupe Objective: Vital Signs Temp Pulse Resp BP Pulse Ox 37.3 C 86 16 123/72 H 93 05/31/17 08:02 05/31/17 08:02 05/31/17 08:02 05/31/17 08:02 05/31/17 08:02 Laboratory Results 05/31/17 04:52 05/31/17 04:52 05/30/17 05/31/17 06/01/17 05:59 05:59 05:59 Intake Total 1000 Output Total 200 400 Balance 800 -400 - Physical Exam Constitutional: no apparent distress, appears nourished Eyes: PERRL, anicteric sclera Ears, Nose, Mouth, Throat: moist mucous membranes, hearing normal Cardiovascular: regular rate and rhythym, no murmur, rub, or gallop Respiratory: no respiratory distress, no rales or rhonchi Gastrointestinal: normoactive bowel sounds, soft, non-tender abdomen, No guarding, No rebound Genitourinary: no bladder fullness, No mcelroy in urethra Skin: warm Musculoskeletal: full muscle strength, no muscle tenderness Neurologic: AAOx3, sensation intact bilaterally Psychiatric: interacting appropriately, not anxious Lymph, Heme, Immunologic: no cervical LAD ICD10 Worksheet Patient Problems: Problems Problem Status Onset Acute gallstone pancreatitis Acute CAD (coronary artery disease), [place] coronary artery Acute Chest pain Acute Postpericardiotomy pericarditis Acute S/P CABG x 2 Acute Presence of bare metal stent in right coronary artery Chronic Presence of drug coated stent in LAD coronary artery Chronic
--- NOTE | 2017-05-31 12:15 | SOAPPROG ---
BARBARA Progress Note Assessment/Plan: Assessment/Plan: - 56yo M c gallstone panc, cholecystitis - Patient has made marked progress over the past few days. Still has some epigastric tenderness which is much better than previous. - Lipase still elevated, All other LFTs downtrending nicely - Planning lap sabas with IOC tomorrow, ok for CLD today - RBA to surgery discussed today 05/31/17 12:13 Subjective: Pain better, wants to ea Objective: Vital Signs Temp Pulse Resp BP Pulse Ox 37.3 C 86 16 123/72 H 93 05/31/17 08:02 05/31/17 08:02 05/31/17 08:02 05/31/17 08:02 05/31/17 08:02 Laboratory Results 05/31/17 04:52 05/31/17 04:52 05/30/17 05/31/17 06/01/17 05:59 05:59 05:59 Intake Total 1000 Output Total 200 400 Balance 800 -400 ICD10 Worksheet Patient Problems: Problems Problem Status Onset Acute gallstone pancreatitis Acute CAD (coronary artery disease), [place] coronary artery Acute Chest pain Acute Postpericardiotomy pericarditis Acute S/P CABG x 2 Acute Presence of bare metal stent in right coronary artery Chronic Presence of drug coated stent in LAD coronary artery Chronic
[2017-05-31] MEDS: ASCORBIC ACID 500 MG TAB PO SCH (13:37)
[2017-05-31] MEDS: MULTIVITAMINS 1 EACH TAB PO SCH (13:37)
--- NOTE | 2017-05-31 16:42 | SOAPPROG ---
SOAP Progress Note Assessment/Plan: Assessment: Plan: 05/30/17 14:37 A/P 1. Acute pancreatitis- biliary. Alk phos normal with no dilation of CBD on imaging. Low suspicion for choledocholithiasis. Will continue to monitor LFTs. Slowly improving. Recommend pancreatic rest- npo, iv fluids, and pain meds. Consider IOC at time of CCY? 05/30/17 14:41 05/31/17 16:39 A/P 1. Acute pancreatitis- biliary. Much improved. Low suspicion for choledocholithiasis. CCY planned for tomorrow with IOC. Subjective: cc: Follow up on acute pancreatitis Much improved. Tolerating liquids. Had BM Objective: Vital Signs Temp Pulse Resp BP Pulse Ox 37.0 C 85 16 139/80 H 94 05/31/17 15:50 05/31/17 15:50 05/31/17 15:50 05/31/17 15:50 05/31/17 15:50 Laboratory Results 05/31/17 04:52 05/31/17 04:52 05/30/17 05/31/17 06/01/17 05:59 05:59 05:59 Intake Total 1000 Output Total 200 400 Balance 800 -400 Physical Exam - Physical Exam General Appearance: alert, no apparent distress EENT: No scleral icterus (R), No scleral icterus (L) Respiratory: lungs clear, normal breath sounds Cardiac/Chest: regular rate, rhythm, No bradycardia, No tachycardia Abdomen: normal bowel sounds, soft, No non-tender (minima), No distended, No guarding Skin: normal color, warm/dry Neuro/Psych: alert, normal mood/affect, oriented x 3 ICD10 Worksheet Patient Problems: Problems Problem Status Onset Acute gallstone pancreatitis Acute CAD (coronary artery disease), [place] coronary artery Acute Chest pain Acute Postpericardiotomy pericarditis Acute S/P CABG x 2 Acute Presence of bare metal stent in right coronary artery Chronic Presence of drug coated stent in LAD coronary artery Chronic
[2017-05-31] MEDS: HYDROmorphONE/DILAUDID 1 MG/ML SYR IVP PRN ×2 (16:48→22:07)
[2017-05-31] MEDS: ZOLPIDEM TARTRATE 5 MG TAB PO PRN (22:07)
[2017-06-01] MEDS: HYDROmorphONE/DILAUDID 1 MG/ML SYR IVP PRN ×4 (03:56→20:54)
[2017-06-01] MEDS: NS 1,000 ML IV SCH ×2 (03:57→18:33)
[2017-06-01] MEDS: ERTAPENEM 1 GM in NS 100 ML IV SCH (09:39)
[2017-06-01] MEDS: RAMIPRIL 5 MG CAP PO SCH (09:39)
[2017-06-01] MEDS: OMEGA-3 FATTY ACIDS 1,000 MG CAP PO SCH (09:39)
[2017-06-01] MEDS: ASPIRIN EC 81 MG TAB PO SCH (09:39)
--- NOTE | 2017-06-01 10:02 | HOSPPROG ---
Hospitalist Progress Note Assessment/Plan: 56 yo M with PMH of CAD presenting with acute on chronic mid epigastric pain found to be 2/2 acute gallstone pancreatitis acute gallstone pancreatitis: with several months of preceding intermittent abdominal pain particularly worsened by eating fatty foods. improving resolving lft's and sx argue against choledocholithiasis, as does absence of dilated ducts on initial imaging discussing timing of ccy w dr guadalupe hold lovenox npo p mn preop cardiac eval: recent cabg no exertional sx to or without further workup or intervention leukocytosis: in setting of above and now resolved h/o CAD: without e/o chest pain or acute issues htn: continue ramipril hld: holding statin dispo: IP status, will likely need > 48 hours stay for eval/mgmt of above Subjective: case discussed w dr guadalupe. no fever or chills overnight Objective: Vital Signs Temp Pulse Resp BP Pulse Ox 36.7 C 80 20 113/72 93 06/01/17 08:00 06/01/17 08:00 06/01/17 08:00 06/01/17 09:39 06/01/17 08:00 Laboratory Results 05/31/17 04:52 05/31/17 04:52 05/31/17 06/01/17 06/02/17 05:59 05:59 05:59 Intake Total 1315 Output Total 800 Balance 515 - Physical Exam Constitutional: no apparent distress, appears nourished Eyes: PERRL, anicteric sclera Ears, Nose, Mouth, Throat: moist mucous membranes, hearing normal Cardiovascular: regular rate and rhythym, no murmur, rub, or gallop Respiratory: no respiratory distress, no rales or rhonchi Gastrointestinal: normoactive bowel sounds, soft, non-tender abdomen Genitourinary: no bladder fullness, No mcelroy in urethra Skin: warm, normal color Musculoskeletal: full muscle strength, no muscle tenderness Neurologic: AAOx3 ICD10 Worksheet Patient Problems: Problems Problem Status Onset Acute gallstone pancreatitis Acute CAD (coronary artery disease), [place] coronary artery Acute Chest pain Acute Postpericardiotomy pericarditis Acute S/P CABG x 2 Acute Presence of bare metal stent in right coronary artery Chronic Presence of drug coated stent in LAD coronary artery Chronic
[2017-06-01] MEDS ORDERED: ceFAZolin 2 GM/DEXTROSE 100 ML IV ONE (11:13)
--- NOTE | 2017-06-01 11:14 | PDHPUP ---
History & Physical Update H&P update statement: This history and physical update is based on an assessment of the patient which was completed after admission or registration (within 24 hours), but prior to the surgery/procedure. H&P update: H&P reviewed & patient examined, no change in patient's condition since H&P completed
--- NOTE | 2017-06-01 12:41 | SOAPPROG ---
SOTING Progress Note Assessment/Plan: Assessment: Plan: 05/30/17 14:37 A/P 1. Acute pancreatitis- biliary. Alk phos normal with no dilation of CBD on imaging. Low suspicion for choledocholithiasis. Will continue to monitor LFTs. Slowly improving. Recommend pancreatic rest- npo, iv fluids, and pain meds. Consider IOC at time of CCY? 05/30/17 14:41 05/31/17 16:39 A/P 1. Acute pancreatitis- biliary. Much improved. Low suspicion for choledocholithiasis. CCY planned for tomorrow with IOC. 06/01/17 12:39 A/P 1. Acute pancreatitis- biliary. Minimal complaints of pain this am. Possible surgery today. Will follow results of CCY. Subjective: cc: Follow up on pancreatitis Complaining of minimal pain this am. Objective: Vital Signs Temp Pulse Resp BP Pulse Ox 36.9 C 89 20 141/80 H 89 L 06/01/17 12:27 06/01/17 12:27 06/01/17 12:27 06/01/17 12:27 06/01/17 12:27 Laboratory Results 05/31/17 04:52 05/31/17 04:52 05/31/17 06/01/17 06/02/17 05:59 05:59 05:59 Intake Total 1315 Output Total 800 Balance 515 Physical Exam - Physical Exam General Appearance: alert, no apparent distress EENT: No scleral icterus (R), No scleral icterus (L) Respiratory: lungs clear, normal breath sounds Cardiac/Chest: regular rate, rhythm, No bradycardia, No tachycardia, No diastolic murmur, No systolic murmur Abdomen: non-tender, soft, No distended, No guarding, No rebound Skin: normal color, warm/dry Neuro/Psych: normal mood/affect, oriented x 3, No abnormal cyberathlete II-XII ICD10 Worksheet Patient Problems: Problems Problem Status Onset Chest pain Acute CAD (coronary artery disease), [place] coronary artery Acute S/P CABG x 2 Acute Presence of bare metal stent in right coronary artery Chronic Presence of drug coated stent in LAD coronary artery Chronic Postpericardiotomy pericarditis Acute Acute gallstone pancreatitis Acute
[2017-06-01] MEDS ORDERED: IOTHALAMATE MEG (CONRAY) 50 ML VIAL IV ONE (12:57)
[2017-06-01] MEDS ORDERED: BUPIVACAINE/EPI 0.25% 30 ML SDV ONE (12:57)
--- NOTE | 2017-06-01 13:01 | PDANEPAE ---
ANE History of Present Illness Cholecystectomy ANE Past Medical History - Cardiovascular History Hx Hypertension: Yes Hx Arrhythmias: No Hx Chest Pain: No Hx Coronary Artery / Peripheral Vascular Disease: No Hx CHF / Valvular Disease: No Hx Palpitations: No Cardiovascular History Comment: CAD. ANGINA. STENTS X5. HYPERLIPIDS - Pulmonary History Hx COPD: No Hx Asthma/Reactive Airway Disease: No Hx Recent Upper Respiratory Infection: No Hx Oxygen in Use at Home: No Hx Sleep Apnea: No Sleep Apnea Screening Result - Last Documented: Positive - Neurologic History Hx Cerebrovascular Accident: No Hx Seizures: No Hx Dementia: No - Endocrine History Hx Diabetes: No Hypothyroid: No Hyperthyroid: No Obesity: no - Renal History Hx Renal Disorders: No - Liver History Hx Hepatic Disorders: No - Neurological & Psychiatric Hx Hx Neurological and Psychiatric Disorders: No - Cancer History Hx Cancer: No Cancer History Comment: PRECANCEROUS SKIN - Congenital Disorder History Hx Congenital Disorders: No - GI History GERD: no Hx Gastrointestinal Disorders: No - Other Health History Other Health History: NEG - Chronic Pain History Chronic Pain: No (R SHOULDER) - Surgical History Prior Surgeries: MENISCUS L KNEE. ACL L KNEE. STENTS X5 ANE Review of Systems - Exercise capacity METS (RN): 4 METS ANE Patient History - Allergies Allergies/Adverse Reactions: codeine Allergy (Verified 05/29/17 12:50) - Home Medications Home Medications: Ascorbic Acid [Vitamin C 500 mg (*)] 500 mg PO DAILY@1200 09/21/13 [Last Taken 05/29/17] Multivitamins [Multivitamin (*)] 1 each PO DAILY@1200 09/21/13 [Last Taken 05/29] Rosuvastatin Calcium [Crestor] 10 mg PO DAILY@1300 09/21/13 [Last Taken 05/29/17 ] Herbals/Supplements -Info Only 1 ea PO DAILY 12/20/15 [Last Taken 12/16/15] Zolpidem Tartrate [Ambien 10 mg] 10 mg PO HS PRN 12/30/15 [Last Taken 05/29/17] Aspirin EC [Aspirin EC 81 mg (*)] 81 mg PO DAILY 05/29/17 [Last Taken 05/29/17] [place]-3 Fatty Acids [Fish Oil 1000 mg (*)] 1,000 mg PO DAILY 05/29/17 [Last Taken 05/29/17] Ramipril [Altace 5mg (*)] 5 mg PO DAILY 05/29/17 [Last Taken 05/29/17] - NPO status NPO Since - Liquids (Date): 06/01/17 NPO Since - Liquids (Time): 00:00 NPO Since - Solids (Date): 06/01/17 NPO Since - Solids (Time): 00:00 - Anes Hx Anes Hx: no prior problems - Smoking Hx Smoking Status: Former smoker Marijuana use: No - Alcohol Use Alcohol Use: Occasionally - Family Anes Hx Family Hx Anesthesia Complications: NEG ANE Labs/Vital Signs - Labs Result Diagrams: 05/31/17 04:52 05/31/17 04:52 - Vital Signs Blood Pressure: 141/80 Heart Rate: 89 Respiratory Rate: 20 O2 Sat (%): 89 Height: 167.64 cm Weight: 72.121 kg ANE Physical Exam - Airway Mallampati Score: Class 1 Mouth exam: normal dental/mouth exam - Pulmonary Pulmonary: no respiratory distress - Cardiovascular Cardiovascular: regular rate and rhythym - ASA Status ASA Status: III ANE Anesthesia Plan Anesthesia Plan: general endotracheal anesthesia
[2017-06-01] MEDS ORDERED: MIDAZOLAM 2 MG/2 ML VIAL IVP ONE (13:03)
[2017-06-01] MEDS ORDERED: ROCURONIUM 50 MG/5 ML VIAL ONE ×2 (13:17→13:53)
[2017-06-01] MEDS ORDERED: DEXAMETHASONE 4 MG/ML VIAL ONE (13:17)
[2017-06-01] MEDS ORDERED: ONDANSETRON 4 MG/2 ML VIAL ONE (13:17)
[2017-06-01] MEDS ORDERED: fentaNYL 100 MCG/2 ML INJ ONE ×3 (13:17→13:55)
[2017-06-01] MEDS ORDERED: GLYCOPYRROLATE 0.2 MG/1 ML VIAL ONE (13:17)
[2017-06-01] MEDS ORDERED: PROPOFOL 200 MG/20 ML VIAL ONE (13:17)
[2017-06-01] MEDS ORDERED: PROPOFOL/EMULSION 500 MG/50 ML BOTTLE IV ONE (13:17)
[2017-06-01] MEDS ORDERED: LIDOCAINE 2% 5 ML SDV ONE (13:18)
[2017-06-01] MEDS ORDERED: SUGAMMADEX SODIUM 200 MG/2 ML VIAL IVP ONE (14:29)
[2017-06-01] MEDS ORDERED: OXYCODONE/APAP 5/325 TAB PO PRN (14:48)
--- NOTE | 2017-06-01 14:48 | POSTOPPROG ---
Post Op Note Date of Operation: 06/01/17 Surgeon: Nabil Roth Smoking Tobacco Packing Machine Hand: MIKE Mcguire Anesthesiologist: Eyal Anesthesia: GET(General Endotracheal) Pre-op Diagnosis: gallstone panc, cholecystitis Post-op Diagnosis: same Procedure: lap sabas c IOC Findings: critical view, IOC: no filling defects Inf/Abcess present in the surg proc area at time of surgery?: No EBL: Minimal Specimen(s): GB
[2017-06-01] MEDS ORDERED: HYDROmorphONE/DILAUDID 1 MG/ML SYR IVP PRN (14:51)
[2017-06-01] MEDS ORDERED: fentaNYL 100 MCG/2 ML INJ IVP PRN (14:51)
[2017-06-01] MEDS ORDERED: NALOXONE HCL 0.4 MG/ML INJ IVP PRN (14:51)
--- NOTE | 2017-06-01 16:06 | POSTANESTH ---
Post Anesthetic Evaluation Cardiovascular Status: Normal, Stable Respiratory Status: Normal, Stable Level of Consciousness/Mental Status: Can Participate in Eval Pain Control: Adequate, Prn Tx Ordered Nausea/Vomiting Control: Adequate, Prn Tx Ordered
[2017-06-01] MEDS: MULTIVITAMINS 1 EACH TAB PO SCH (17:46)
[2017-06-01] MEDS: ASCORBIC ACID 500 MG TAB PO SCH (17:46)
--- NOTE | 2017-06-01 18:06 | SOAPPROG ---
SOTING Progress Note Assessment/Plan: Assessment: Plan: 05/30/17 14:37 A/P 1. Acute pancreatitis- biliary. Alk phos normal with no dilation of CBD on imaging. Low suspicion for choledocholithiasis. Will continue to monitor LFTs. Slowly improving. Recommend pancreatic rest- npo, iv fluids, and pain meds. Consider IOC at time of CCY? 05/30/17 14:41 05/31/17 16:39 A/P 1. Acute pancreatitis- biliary. Much improved. Low suspicion for choledocholithiasis. CCY planned for tomorrow with IOC. 06/01/17 12:39 A/P 1. Acute pancreatitis- biliary. Minimal complaints of pain this am. Possible surgery today. Will follow results of CCY. 06/01/17 18:05 GI note Surgery note reviewed. IOC with no filling defects. GI will sign off. Thank you for the consultation! Objective: Vital Signs Temp Pulse Resp BP Pulse Ox 36.5 C 79 20 127/85 H 87 L 06/01/17 17:20 06/01/17 17:20 06/01/17 17:20 06/01/17 17:20 06/01/17 17:20 Laboratory Results 05/31/17 04:52 05/31/17 04:52 05/31/17 06/01/17 06/02/17 05:59 05:59 05:59 Intake Total 1315 Output Total 800 Balance 515 ICD10 Worksheet Patient Problems: Problems Problem Status Onset Chest pain Acute CAD (coronary artery disease), [place] coronary artery Acute S/P CABG x 2 Acute Presence of bare metal stent in right coronary artery Chronic Presence of drug coated stent in LAD coronary artery Chronic Postpericardiotomy pericarditis Acute Acute gallstone pancreatitis Acute
--- NOTE | 2017-06-01 18:41 | GOP ---
[f rep st] OPERATIVE REPORT DATE OF OPERATION: 06/01/2017 SURGEON: Nabil Roth MD HOTBED LEVER OPERATOR: MADI Snyder ANESTHESIA: General endotracheal. ANESTHESIOLOGIST: Dr. Ryann Birch. PREOPERATIVE DIAGNOSIS: 1. Gallstone pancreatitis. 2. Cholecystitis. POSTOPERATIVE DIAGNOSIS: 1. Gallstone pancreatitis. 2. Cholecystitis. PROCEDURE PERFORMED: Laparoscopic cholecystectomy with intraoperative cholangiogram. FINDINGS: Multiple adhesions to the gallbladder wall with fluid within the wall consistent with cholecystitis. Critical view obtained. Intraoperative cholangiogram performed, which showed brisk spillage of bile into the duodenum without any filling defects. SPECIMENS: Gallbladder. ESTIMATED BLOOD LOSS: 10 cc. DESCRIPTION OF PROCEDURE: The patient was greeted in the preoperative suite. Once again, risks, benefits, and alternatives were discussed. The consent was then signed. He was then brought back to the operative suite, placed on the OR table in supine position. After all anesthesia machines, including SCDs, were on and functioning, a World Health Organization time-out was performed ending with all in agreement. Antibiotics were given on-call to the operating room. After successful induction of general anesthesia, the patient's abdomen was widely prepped and draped in typical sterile fashion. I commenced the procedure by making a midline infraumbilical cutdown, through which I passed a Veress needle. I successfully insufflated with CO2 to 15 mmHg. Once this was done, using a Visiport 12 mm trocar, I successfully entered the patient's abdomen. I then placed 3 additional 5 mm trocars, 1 in the subxiphoid, 2 in the right upper quadrant, all under direct visualization. There were dense adhesions to the gallbladder, which were taken down sharply. After these were down, I grasped the gallbladder and retracted it over the liver edge. I dissected out the infundibulum and identified 2, and only 2, structures leading toward it. After I successfully passed the Guzmán catheter, a cholangiogram, which was performed with intraoperative fluoroscopy, showed brisk spillage into the duodenum and no filling defects of the entire biliary tree. Guzmán catheter was then removed. The artery and duct were then clipped and divided. I did place an 0 PDS Endoloop on the remnant of the cystic duct, as the duct was somewhat dilated, although the clips did completely cover it. After this was done, the gallbladder was taken off the liver bed with electrocautery. It was then placed in an EndoCatch bag and removed. Hemostasis was achieved with electrocautery within the liver bed. The right upper quadrant was irrigated with 1 L normal saline noting clear effluent in the suction canister. Local anesthesia was then instilled into all port sites, which were removed under direct visualization. Pneumoperitoneum was evacuated. My infraumbilical port site was closed with a [id number] 0 Vicryl stitch noting excellent fascial reapproximation. The skin was then closed with running 4-0 Monocryl, over which Dermabond was placed. The patient was then extubated in the operative suite and then taken to the PACU in satisfactory condition. DRAINS: None. COUNTS: All counts were reported as correct x2. /[id number]/MODL MTDD
[2017-06-01] MEDS: ZOLPIDEM TARTRATE 5 MG TAB PO PRN (22:11)
--- NOTE | 2017-06-02 07:10 | PDDCSUM ---
Discharge Summary Discharge Summary: DISCHARGE SUMMARY Date of Admission May 29 Date of Discharge June 02 DISCHARGE DIAGNOSES -gallstone pancreatitis -cholecystitis HOSPITAL COURSE The patient was admitted from the ED with gallstone pancreatitis and cholecystitis. Liver function enzymes trended down, his lipase normalized. He was subsequently taken to the operating room on 06/01 3 underwent laparoscopic cholecystectomy with intraoperative cholangiogram. Cholangiogram showed no filling defects and brisk spillage of contrast into the duodenal. Postoperative day 1, the patient was feeling well, tolerating regular diet with good pain control. He was subsequently discharged home in stable condition on the morning of the . DISCHARGE MEDICATIONS Percocet as needed for pain, all home medications restarted DISPOSITION Home FOLLOW UP Follow up with me in the office in 10-14 days for a general post-operative visit
[2017-06-02 08:48] VITALS: BP 143/88; PULSE 79; RESP 18; TEMP 98.2; O2SAT 93
--- NOTE | 2017-06-02 09:45 | HOSPPROG ---
Hospitalist Progress Note Assessment/Plan: 56 yo M with PMH of CAD presenting with acute on chronic mid epigastric pain found to be 2/2 acute gallstone pancreatitis acute gallstone pancreatitis: with several months of preceding intermittent abdominal pain particularly worsened by eating fatty foods. s/p lap sabas eating preop cardiac eval: recent cabg no exertional sx to or without further workup or intervention leukocytosis: in setting of above and now resolved h/o CAD: without e/o chest pain or acute issues htn: continue ramipril hld: holding statin dispo: IP status, will likely need > 48 hours stay for eval/mgmt of above Subjective: feels well. ate w no pain Objective: Vital Signs Temp Pulse Resp BP Pulse Ox 36.8 C 79 18 143/88 H 93 06/02/17 08:00 06/02/17 08:00 06/02/17 08:00 06/02/17 08:00 06/02/17 08:00 Laboratory Results 05/31/17 04:52 05/31/17 04:52 06/01/17 06/02/17 06/03/17 05:59 05:59 05:59 Intake Total 1315 1100 Output Total 800 Balance 515 1100 - Physical Exam Constitutional: no apparent distress, appears nourished Eyes: PERRL, anicteric sclera Ears, Nose, Mouth, Throat: moist mucous membranes, hearing normal Cardiovascular: regular rate and rhythym, no murmur, rub, or gallop Respiratory: no respiratory distress, no rales or rhonchi Gastrointestinal: normoactive bowel sounds, soft, non-tender abdomen, other ( incision c/d/i) Genitourinary: no bladder fullness, No mcelroy in urethra Skin: warm, normal color Musculoskeletal: full muscle strength, no muscle tenderness Neurologic: AAOx3, sensation intact bilaterally Psychiatric: interacting appropriately, not anxious ICD10 Worksheet Patient Problems: Problems Problem Status Onset Acute gallstone pancreatitis Acute CAD (coronary artery disease), [place] coronary artery Acute Chest pain Acute Postpericardiotomy pericarditis Acute S/P CABG x 2 Acute Presence of bare metal stent in right coronary artery Chronic Presence of drug coated stent in LAD coronary artery Chronic
[2017-06-02] MEDS: RAMIPRIL 5 MG CAP PO SCH (11:17)
[2017-06-02] MEDS: OMEGA-3 FATTY ACIDS 1,000 MG CAP PO SCH (11:20)
[2017-06-02] MEDS: ASPIRIN EC 81 MG TAB PO SCH (11:21)
[2017-06-02] MEDS: ERTAPENEM 1 GM in NS 100 ML IV SCH (11:21)
== END 2017-06-02 12:20 | disposition home or self-care (01) | DRG 418 ==
LOC: F3E 16:08
PROVIDERS: ADMIT Hospitalist; ATTEND Surgery
PROC: BF141ZZ Fluoroscopy of Gallbladder, Bile Ducts and Pancreatic Ducts using Low Osmolar Contrast (ICD-10-PCS; principal; 2017-06-01 13:15)
PROC: 0FT44ZZ Resection of Gallbladder, Percutaneous Endoscopic Approach (ICD-10-PCS; principal; 2017-06-01 13:15)
DX: K85.10 Biliary acute pancreatitis without necrosis or infection (principal); K80.10 Calculus of gallbladder with chronic cholecystitis without obstruction; K76.0 Fatty (change of) liver, not elsewhere classified; E78.5 Hyperlipidemia, unspecified; R16.0 Hepatomegaly, not elsewhere classified; I25.10 Atherosclerotic heart disease of native coronary artery without angina pectoris; I10 Essential (primary) hypertension; Z95.1 Presence of aortocoronary bypass graft; Z95.5 Presence of coronary angioplasty implant and graft; Z87.891 Personal history of nicotine dependence
CPT/HCPCS: 96374; J0690; J1100; J1170; J1335; J2250; J2405; J2704; J3010; Q9961

== ENCOUNTER 2017-08-27 08:55 | Day surgery (SDC) | payer OTHER ==
[2017-08-27] MEDS ORDERED: ceFAZolin 2 GM/SWFI 2 GM/20 ML SYR IVP ONE (09:04)
[2017-08-27] MEDS ORDERED: LIDOCAINE 1% 2 ML INJ ID PRN (09:11)
[2017-08-27] MEDS ORDERED: LR 1,000 ML IV ONE (09:11)
[2017-08-27] MEDS ORDERED: BUPIVACAINE 0.5% 30 ML SDV ONE (09:25)
[2017-08-27] MEDS ORDERED: MIDAZOLAM 2 MG/2 ML VIAL IVP ONE (10:23)
--- NOTE | 2017-08-27 10:23 | PDANEPAE ---
ANE History of Present Illness Left Ing hernia ANE Past Medical History - Cardiovascular History Hx Hypertension: Yes Hx Arrhythmias: No Hx Chest Pain: No Hx Coronary Artery / Peripheral Vascular Disease: Yes Hx CHF / Valvular Disease: No Hx Palpitations: No Cardiovascular History Comment: CAD. CABG 12/2015. STENTS X5. HYPERLIPIDS - Pulmonary History Hx COPD: No Hx Asthma/Reactive Airway Disease: No Hx Recent Upper Respiratory Infection: No Hx Oxygen in Use at Home: No Hx Sleep Apnea: No Sleep Apnea Screening Result - Last Documented: Positive - Neurologic History Hx Cerebrovascular Accident: No Hx Seizures: No Hx Dementia: No - Endocrine History Hx Diabetes: No - Renal History Hx Renal Disorders: No - Liver History Hx Hepatic Disorders: No - Neurological & Psychiatric Hx Hx Neurological and Psychiatric Disorders: No - Cancer History Hx Cancer: No Cancer History Comment: PRECANCEROUS SKIN - Congenital Disorder History Hx Congenital Disorders: No - GI History Hx Gastrointestinal Disorders: No - Other Health History Other Health History: NEG - Chronic Pain History Chronic Pain: No (R SHOULDER) - Surgical History Prior Surgeries: CHOLECTYSTECTOMY. CABG 12/2015. MENISCUS L KNEE. ACL L KNEE. STENTS X5 ANE Review of Systems Review of Systems: - Exercise capacity METS (RN): 5 METS ANE Patient History - Allergies Allergies/Adverse Reactions: codeine Allergy (Intermediate, Verified 08/20/17 11:32) Rash - Home Medications Home medications: home medication list seen and reviewed Home Medications: Ascorbic Acid [Vitamin C 500 mg (*)] 500 mg PO DAILY@1200 09/21/13 [Last Taken 08/20/17] Multivitamins [Multivitamin (*)] 1 each PO DAILY@1200 09/21/13 [Last Taken 08/20] Rosuvastatin Calcium [Crestor] 10 mg PO DAILY@1300 09/21/13 [Last Taken 08/26/17 ] Herbals/Supplements -Info Only 1 ea PO DAILY 12/20/15 [Last Taken 08/20/17] Zolpidem Tartrate [Ambien 10 mg] 10 mg PO HS PRN 12/30/15 [Last Taken 05/29/17] Aspirin EC [Aspirin EC 81 mg (*)] 81 mg PO DAILY 05/29/17 [Last Taken 08/20/17] [place]-3 Fatty Acids [Fish Oil 1000 mg (*)] 1,000 mg PO DAILY 05/29/17 [Last Taken 08/20/17] Ramipril [Altace 5mg (*)] 5 mg PO DAILY 05/29/17 [Last Taken 08/26/17] - NPO status NPO Since - Liquids (Date): 08/27/17 NPO Since - Liquids (Time): 06:00 NPO Since - Solids (Date): 08/26/17 NPO Since - Solids (Time): 20:00 - Anes Hx Anes Hx: no prior problems - Smoking Hx Smoking Status: Former smoker - Family Anes Hx Family Hx Anesthesia Complications: NEG ANE Labs/Vital Signs - Vital Signs Blood Pressure: 136/82 Heart Rate: 83 Respiratory Rate: 16 O2 Sat (%): 97 Height: 167.64 cm Weight: 71.668 kg ANE Physical Exam - Airway Neck exam: FROM Mallampati Score: Class 2 Mouth exam: normal dental/mouth exam - Pulmonary Pulmonary: no respiratory distress - Cardiovascular Cardiovascular: regular rate and rhythym - ASA Status ASA Status: II ANE Anesthesia Plan Anesthesia Plan: general endotracheal anesthesia
[2017-08-27] MEDS ORDERED: LIDOCAINE 2% 5 ML SDV ONE (10:33)
[2017-08-27] MEDS ORDERED: ROCURONIUM 50 MG/5 ML VIAL ONE (10:34)
[2017-08-27] MEDS ORDERED: PROPOFOL 200 MG/20 ML VIAL ONE (10:34)
[2017-08-27] MEDS ORDERED: fentaNYL 100 MCG/2 ML INJ ONE ×3 (10:34→12:46)
[2017-08-27] MEDS ORDERED: GLYCOPYRROLATE 0.2 MG/1 ML VIAL ONE (10:35)
[2017-08-27] MEDS ORDERED: DEXAMETHASONE 4 MG/ML VIAL ONE (12:02)
[2017-08-27] MEDS ORDERED: ONDANSETRON 4 MG/2 ML VIAL ONE (12:03)
[2017-08-27] MEDS ORDERED: NALOXONE HCL 0.4 MG/ML INJ IVP PRN (12:04)
[2017-08-27] MEDS ORDERED: ONDANSETRON 4 MG/2 ML VIAL IVP PRN (12:04)
[2017-08-27] MEDS ORDERED: PROMETHAZINE HCL 25 MG/ML INJ IVP PRN (12:04)
[2017-08-27] MEDS ORDERED: SUGAMMADEX SODIUM 200 MG/2 ML VIAL IVP ONE (12:22)
--- NOTE | 2017-08-27 12:35 | POSTOPPROG ---
Post Op Note Date of Operation: 08/27/17 Surgeon: Nabil Roth Flight Mechanic: MADI Spaulding Anesthesiologist: Kwame Anesthesia: GET(General Endotracheal) Pre-op Diagnosis: LIH Post-op Diagnosis: L direct and indirect inguinal hernia Procedure: robotic assisted LIH c mesh Findings: direct and indirect pantaloon defect Inf/Abcess present in the surg proc area at time of surgery?: No EBL: Minimal
[2017-08-27] MEDS ORDERED: KETOROLAC 30 MG/1 ML SDV IVP ONE (12:41)
--- NOTE | 2017-08-27 12:42 | POSTANESTH ---
Post Anesthetic Evaluation Cardiovascular Status: Normal, Stable Respiratory Status: Normal, Stable Level of Consciousness/Mental Status: Can Participate in Eval Pain Control: Adequate, Prn Tx Ordered Nausea/Vomiting Control: Adequate, Prn Tx Ordered Complications Possibly Related to Anesthesia: None Noted
[2017-08-27] MEDS ORDERED: KETOROLAC 30 MG/1 ML SDV ONE (12:45)
[2017-08-27] MEDS: fentaNYL 100 MCG/2 ML INJ IVP PRN ×3 (12:46→13:35)
[2017-08-27] MEDS ORDERED: OXYCODONE/APAP 5/325 TAB PO ONE (14:00)
[2017-08-27 14:02] VITALS: RESP 10
[2017-08-27 14:20] VITALS: BP 121/79; PULSE 88; O2SAT 93
[2017-08-27 14:33] VITALS: TEMP 98.2
--- NOTE | 2017-08-28 05:30 | GOP ---
[f rep st] OPERATIVE REPORT DATE OF OPERATION: 08/27/2017 SURGEON: Nabil Roth MD HIDE CLEANER: Mis Spaulding, MADI ANESTHESIA: General endotracheal. ANESTHESIOLOGIST: Juan Puente MD PREOPERATIVE DIAGNOSIS: Left inguinal hernia. POSTOPERATIVE DIAGNOSIS: Left direct and indirect (pantaloon) inguinal hernia. PROCEDURE PERFORMED: Robotic-assisted laparoscopic left inguinal hernia repair with mesh. FINDINGS: Left-sided direct and indirect pantaloon defect successfully repaired with Bard 3D Light l arge size mesh. SPECIMENS: None. ESTIMATED BLOOD LOSS: 5 cc. DESCRIPTION OF PROCEDURE: The patient was greeted in the preoperative suite. Once again, risks, mike efits, and alternatives were discussed. Consent was signed. He was then brought back to the operati ve suite, placed on the OR table in a supine position. After all anesthesia machines, including SCDs , were on and functioning, a [employer] time-out was performed. After successful cristopher ction of general anesthesia, the patient's abdomen was prepped and draped in a typical sterile fashio n. I entered the abdomen via a supraumbilical horizontal cut down through which the Veress needle wa s passed. I achieved pneumoperitoneum to 15 mmHg, which was well tolerated by the patient. I then i nserted a 5 mm Visiport through this site. I then inserted 2 additional 8 mm trocars, 1 in the right upper and 1 in the left upper quadrant, both under direct visualization, and upsized my umbilical 5 mm port to an 8 mm size. I then placed the patient in slight Trendelenburg position and successfully docked the robot. Once successfully in the patient's abdomen, I first inspected the contralateral s jairon and identified no defect. I then turned my attention toward the right side, where a hernia was r eadily identified. I commenced the procedure by scoring the peritoneum just superior to the anterior -superior iliac spine and carrying this all the way down to across the midline. I then created a pre peritoneal flap and dissected this down medially to Vasyl ligament and laterally all the way to the extent of my dissection. I then carried this medially toward the hernia sac and I successfully reduc ed the hernia sac from the cord structures. I then turned my attention medially, where I identified both an indirect and direct defect. In the same fashion, I reduced the indirect defect as well as th e direct. Once both hernia sacs were successfully reduced, I skeletonized the cord structures. I wa s happy that there were no other defects or significant pathology. After ensuring that I had an adeq uate site for my mesh, I inserted my Bard 3D Light mesh into the patient's abdomen. I tacked it to C ooper ligament using 2 interrupted 2-0 Vicryl sutures and 1 suture just lateral to the inferior epiga stric vessels. I then made sure that the mesh laid within the site without any kinks. Once this was done, I closed the peritoneal defect with a running 3-0 V-Loc suture, noting excellent peritoneal re approximation. I then inspected the viscera and noted no other significant pathology. I then evacua marcell my pneumoperitoneum. I closed my port sites with interrupted Monocryl. Dermabond was placed ove r this. The patient was then extubated in the operative suite and taken to the PACU in satisfactory condition. SURGEON: Nabil Roth MD DRAINS: None. COUNTS: All counts were reported as correct x2. /[id number]/MODL
== END 2017-08-27 14:30 | disposition home or self-care (01) ==
LOC: FSGY 08:55
PROVIDERS: ATTEND Surgery
PROC: 0YU64JZ Supplement Left Inguinal Region with Synthetic Substitute, Percutaneous Endoscopic Approach (ICD-10-PCS; principal; 2017-08-27 10:30)
DX: K40.90 Unilateral inguinal hernia, without obstruction or gangrene, not specified as recurrent (principal); Z87.891 Personal history of nicotine dependence
CPT/HCPCS: C1781; J0690; J1100; J1885; J2250; J2405; J2704; J3010

== ENCOUNTER → 2019-02-11 | Outpatient (CLI) | payer OTHER | LOC: CIMAGING 09:48 | PROVIDERS: ATTEND Internal Medicine Cardiovascular Disease | DX: I25.10 Atherosclerotic heart disease of native coronary artery without angina pectoris (principal); E78.5 Hyperlipidemia, unspecified; I10 Essential (primary) hypertension; Z95.1 Presence of aortocoronary bypass graft | CPT/HCPCS: 71046-PO ==